=== PATIENT | female | born 1960 | race Caucasian/White ===

== ENCOUNTER 2016-12-02 09:47 | Day surgery (SDC) | payer OTHER ==
[~2016-12-02] VITALS: Ht 167.6 cm; Wt 67.5 kg
[~2016-12-02 09:47] MED LIST: ASPI81TA28 PO; TOPI50TA16 PO; ZOLP10TA PO; [UNRECOGNIZED DRUG - OTHER] PO
[2016-12-02 09:54] VITALS: BP 101/72; PULSE 80; TEMP 36.6; O2SAT 98; Ht 167.6 cm; Wt 67.5 kg
[2016-12-02 12:10] LABS: BUN/CREATININE RATIO 23.9 (10-20); CALCIUM 8.2 mg/dl (8.5-10.1); CREATININE 0.83 mg/dl (0.60-1.20); POTASSIUM 3.8 mmol/L (3.5-5.1)
[2017-03-18] MEDS ORDERED: POTA20TA16 PO (13:17)
[2017-04-06] MEDS ORDERED: ASPI-390 PO (14:38)
== END 2016-12-21 13:11 | disposition home or self-care (01) ==
LOC: C.MTU 09:47
PROVIDERS: ATTEND Internal Medicine Gastroenterology
DX: R19.7 Diarrhea, unspecified (principal)

== ENCOUNTER → 2016-12-09 | Outpatient (CLI) | payer OTHER ==
[~2016-12-09] MED LIST changes: +ASPI-390 PO; +POTA20TA16 PO; -[UNRECOGNIZED DRUG - OTHER] PO
[2016-12-12 16:30] LABS: IGA SERUM 169 mg/dL (81-463); TIS TRANS IGA 1 U/mL (<4)
== END | disposition home or self-care (01) ==
LOC: C.LAB 04:47
PROVIDERS: ATTEND Internal Medicine Gastroenterology
DX: R19.7 Diarrhea, unspecified (principal)

== ENCOUNTER → 2017-03-10 | Outpatient (CLI) | payer OTHER ==
[2017-03-10 05:26] LABS: BASO % 0.2 %; BASO ABS # 0.02 K/uL (0-0.2); COMPLETE YES; EOS % 0.5 %; HEMATOCRIT 45.7 % (37-47); IG% 0.2 %; LYMPH % 16.5 %; LYMPH ABS # 1.39 K/uL (1.2-3.4); MEAN CELL VOLUME 92.5 fL (80-100); MEAN CORPUSCULAR HGB CONC 33.5 g/dl (32-36); MEAN PLATELET VOLUME 8.8 fL (7.4-10.4); MONO % 12.8 %; NEUT % 69.8 %; PLATELET COUNT 276 K/uL (130-400); RED BLOOD COUNT 4.94 M/uL (4.2-5.4); WHITE BLOOD COUNT 8.41 K/uL (4.8-10.8)
[2017-03-10 08:22] LABS: ALKALINE PHOSPHATASE 91 U/L (45-117); ALT/SGPT 38 U/L (12-78); AST/SGOT 26 U/L (15-37); BLOOD UREA NITROGEN 20 mg/dl (7-18); BUN/CREATININE RATIO 17.9 (10-20); CALCIUM 8.9 mg/dl (8.5-10.1); CARBON DIOXIDE 30 mmol/L (21-32); CHLORIDE 104 mmol/L (98-107); GLUCOSE 81 mg/dl (70-99); POTASSIUM 2.5 mmol/L (3.5-5.1); SODIUM 141 mmol/L (136-145)
== END | disposition home or self-care (01) ==
LOC: C.LAB 04:59
PROVIDERS: ATTEND Family Medicine
DX: R19.7 Diarrhea, unspecified (principal); K52.839 Microscopic colitis, unspecified

== ENCOUNTER 2017-03-11 03:59 | Emergency (ER) | payer OTHER ==
[~2017-03-11] VITALS: Ht 170.2 cm; Wt 65.9 kg
[~2017-03-11 03:59] MED LIST changes: -ASPI-390 PO; -POTA20TA16 PO
[2017-03-11 04:03] VITALS: BP 109/58; TEMP 36.7; Ht 170.2 cm; Wt 65.9 kg
[2017-03-11] MEDS ORDERED: SODIUM CHLORIDE 0.9% 1000ML 1,000 ML IV STA (04:38)
[2017-03-11] MEDS ORDERED: POTASSIUM CHLORIDE 10 MEQ / 100ML WTR IV STA (04:38)
--- NOTE | 2017-03-11 04:43 | EMERGENCY ROOM VISIT NOTE ---
History Report prepared by Elvin: Olivier Flower Under the Supervision of: Dr. Brenda Muñiz D.O. First contact with patient: 04:09 Chief Complaint: DEHYDRATION Stated Complaint: DEHYDRATED Nursing Triage Summary: Patient reports diarrhea for 8 months, notes nausea as well. Patient states that symptoms are getting worse and she feels that she is dehydrated. History of Present Illness The patient is a 56 year old female who presents to the Emergency Room with complaints of generalized weakness starting about 4 weeks ago and worsening over the past few days. She has been having continuous diarrhea for the past 9 months which has worsened over the past 4 weeks. 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 She had an upper and lower endoscopy which showed polyps but was otherwise negative. She reports feeling dehydrated and fatigued. The patient had blood work done yesterday which showed a low potassium. She denies any history of low potassium. She has lost about 10 pounds in less than a month. She denies fevers, chills, nausea, vomiting, or any other complaints. She has a history of cholecystectomy occurring about 3 years ago. Source of History: patient Onset: about 4 weeks ago Position: other (global) Quality: other (generalized weakness) Timing: worsening Associated Symptoms: + diarrhea, + fatigue, No fevers, No chills, No nausea , No vomiting Review of Systems See HPI for pertinent positives & negatives. A total of 10 systems reviewed and were otherwise negative. Past Medical & Surgical Medical Problems: (1) Bulging cervical disc (2) Migraine Family History FH: myocardial infarction Social History Smoking Status: Current Every Day Smoker Alcohol Use: none Marital Status: single Occupation Status: employed Current/Historical Medications Scheduled Aspirin (Aspirin Ec), 81 MG PO QAM Topiramate (Topamax), 50 MG PO BID Zolpidem Tartrate (Ambien), 10 MG PO HS Allergies Coded Allergies: Iodinated Contrast Media (Verified Allergy, Intermediate, CONTRAST MEDIA- HIVES, 03/11/17) Physical Exam Vital Signs Date Time Temp Pulse Resp B/P (MAP) Pulse Ox O2 Delivery O2 Flow Rate FiO2 03/11/17 06:01 77 18 97 Room Air 03/11/17 04:55 83 03/11/17 04:03 36.7 102 20 109/58 96 Room Air Physical Exam HEENT: Head - normocephalic and atraumatic Pupils are equal, round, and reactive to light. Extraocular eye muscles are intact, and sclera are anicteric. Nose - moist nasal mucosa without discharge. Mouth - dry buccal mucosa. Oropharynx is nonerythematous and there is no tonsillar exudate or edema noted. Neck: Supple; no JVD, nuchal rigidity, cervical lymphadenopathy. Heart: Regular rate and rhythm. There is a normal S1 and S2 with no murmurs, clicks, or gallops appreciated. Lungs: Clear to auscultation bilaterally with no wheezes, rales, or rhonchi. Abdomen: Soft, completely nontender, nondistended, with good bowel sounds. There are no palpable pulsatile masses or hepatosplenomegaly. There is no guarding, rigidity, or rebound noted. Extremities: No evidence of cyanosis, clubbing, or edema. There are easily palpable peripheral pulses. Skin: warm and dry with poor turgor and no rashes. Medical Decision & Procedures Laboratory Results 03/11/17 04:45 03/11/17 05:47 Test 03/11/17 04:45 Anion Gap 7.0 mmol/L (3-11) Est Creatinine Clear Calc Drug Dose 51.5 ml/min Estimated GFR () 58.9 Estimated GFR (Non- 50.8 BUN/Creatinine Ratio 14.7 (10-20) Calcium Level 9.0 mg/dl (8.5-10.1) Laboratory results per my review. Medications Administered Medications (Trade) Dose Ordered Sig/Rosalinda Route Start Time Stop Time Status Last Admin Dose Admin Sodium Chloride 1,000 ml @ 999 mls/hr Q1H1M STAT IV 03/11/17 04:38 03/11/17 05:38 DC 03/11/17 04:50 999 MLS/HR Potassium Chloride (Kcl 10 Meq / Wtr) 10 meq NOW STAT IV 03/11/17 04:38 03/11/17 04:39 DC 03/11/17 04:50 10 MEQ Procedure Potassium Chloride 10 meq IV, Sodium Chloride 1000 ml @ 999 mls/hr IV ED Course 0409: Past medical records reviewed. The patient was evaluated in room A04B. A complete history and physical exam was performed. 0438: Potassium Chloride 10 meq IV, Sodium Chloride 1000 ml @ 999 mls/hr IV 0619: Upon reevaluation, the patient is resting comfortably. I discussed findings and results with her. She verbalized agreement of the treatment plan. She was discharged home. Medical Decision The patient presents to the Emergency Room with complaints of generalized weakness. Differential diagnosis includes but is not limited to dehydration, hypokalemia, profuse diarrhea, generalized weakness. Her labs showed potassium 2.8, BUN 18, creatinine 1.2, glucose 121. Stool specimen was collected but her PCP will follow up for results. I attest that I have personally reviewed the patient's current medication list. Patient was found to have normal blood pressure on screening and does not require follow-up. The patient had blood work drawn yesterday which revealed a potassium of 2.5. She continues to have profuse diarrhea. A stool specimen was obtained and was sent for Gram stain, culture and C. difficile. On repeat laboratory studies today, her potassium was 2.8. She was given 10 mEq of IV potassium. She'll be discharged to take foods high in potassium and have the potassium level rechecked in 5 days. Impression Primary Impression: Hypokalemia Scribe Attestation The scribe's documentation has been prepared under my direction and personally reviewed by me in its entirety. I confirm that the note above accurately reflects all work, treatment, procedures, and medical decision making performed by me. Departure Information Dispostion Home / Self-Care Referrals Lucinda Hoffmann D.O. (PCP) Forms HOME CARE DOCUMENTATION FORM, IMPORTANT VISIT INFORMATION, WORK / SCHOOL INSTRUCTIONS Patient Instructions Hypokalemia Florentin, My [facility] Additional Instructions Rest. Take plenty of clear liquids Take foods high in potassium. Have your potassium level checked in 5 days Follow up with PCP for results of stool samples
[2017-03-11 05:31] LABS: BLOOD UREA NITROGEN 18 mg/dl (7-18); BUN/CREATININE RATIO 14.7 (10-20); CARBON DIOXIDE 27 mmol/L (21-32); CHLORIDE 106 mmol/L (98-107); GLUCOSE 121 mg/dl (70-99); SODIUM 140 mmol/L (136-145)
[2017-03-11 06:01] VITALS: PULSE 77; O2SAT 97
[2017-03-18] MEDS ORDERED: POTA20TA16 PO (13:17)
[2017-04-06] MEDS ORDERED: ASPI-390 PO (14:38)
== END 2017-03-11 06:35 | disposition home or self-care (01) ==
LOC: C.EDB 03:59 → C.EDA 06:35
DX: E87.6 Hypokalemia (principal); R19.7 Diarrhea, unspecified; Z90.49 Acquired absence of other specified parts of digestive tract; Z82.49 Family history of ischemic heart disease and other diseases of the circulatory system; F17.210 Nicotine dependence, cigarettes, uncomplicated; Z79.899 Other long term (current) drug therapy; Z79.82 Long term (current) use of aspirin

== ENCOUNTER → 2017-03-16 | Outpatient (CLI) | payer OTHER ==
[~2017-03-16] MED LIST changes: +ASPI-390 PO; +POTA20TA16 PO
[2017-03-16 06:26] LABS: BASO % 0.4 %; BASO ABS # 0.04 K/uL (0-0.2); COMPLETE YES; EOS % 0.3 %; HEMATOCRIT 45.3 % (37-47); IG% 0.3 %; LYMPH % 16.1 %; LYMPH ABS # 1.46 K/uL (1.2-3.4); MEAN CELL VOLUME 91.9 fL (80-100); MEAN CORPUSCULAR HEMOGLOBIN 31.8 pg (25-34); MEAN CORPUSCULAR HGB CONC 34.7 g/dl (32-36); MEAN PLATELET VOLUME 9.2 fL (7.4-10.4); MONO % 7.7 %; NEUT % 75.2 %; PLATELET COUNT 301 K/uL (130-400); RED BLOOD COUNT 4.93 M/uL (4.2-5.4); WHITE BLOOD COUNT 9.09 K/uL (4.8-10.8)
[2017-03-16 07:02] LABS: ALT/SGPT 52 U/L (12-78); AST/SGOT 37 U/L (15-37); BLOOD UREA NITROGEN 23 mg/dl (7-18); BUN/CREATININE RATIO 19.4 (10-20); CARBON DIOXIDE 27 mmol/L (21-32); CHLORIDE 104 mmol/L (98-107); GLUCOSE 80 mg/dl (70-99); POTASSIUM 3.1 mmol/L (3.5-5.1); SODIUM 140 mmol/L (136-145)
[2017-03-16 07:04] LABS: ALB/GLOB RATIO 1.1 (0.9-2); ALKALINE PHOSPHATASE 88 U/L (45-117); C-REACTIVE PROTEIN 0.56 mg/dl (0-0.29)
[2017-03-16 13:26] LABS: CALCIUM 9.5 mg/dl (8.5-10.1)
== END | disposition home or self-care (01) ==
LOC: C.LAB 05:02
PROVIDERS: ATTEND Family Medicine
DX: R19.7 Diarrhea, unspecified (principal); K52.839 Microscopic colitis, unspecified

== ENCOUNTER → 2017-03-26 | Outpatient (CLI) | payer OTHER ==
[2017-03-26 09:19] LABS: BLOOD UREA NITROGEN 22 mg/dl (7-18); BUN/CREATININE RATIO 20.4 (10-20); CALCIUM 9.8 mg/dl (8.5-10.1); CARBON DIOXIDE 22 mmol/L (21-32); CHLORIDE 111 mmol/L (98-107); GLUCOSE 76 mg/dl (70-99); POTASSIUM 4.2 mmol/L (3.5-5.1); SODIUM 140 mmol/L (136-145)
== END | disposition home or self-care (01) ==
LOC: C.LAB 09:01
PROVIDERS: ATTEND Family Medicine
DX: R19.7 Diarrhea, unspecified (principal)

== ENCOUNTER → 2017-04-12 | Day surgery (SDC) | payer OTHER ==
[2017-04-06 14:35] VITALS: Ht 172.7 cm; Wt 63.6 kg
[~2017-04-12] VITALS: Ht 172.7 cm; Wt 63.6 kg
[~2017-04-12] MED LIST changes: +ATROPINE SULFATE 0.1 MG/ML 5ML SYR IV PRN; +EpHEDrine SULFATE INJ 50 MG/ML AMP IV PRN; +LIDOCAINE HCL 2% 2 ML VIAL (20MG/ML) ONE; +MIDAZOLAM HCL 1 MG/ML 2ML VIAL ONE; +PROPOFOL IV EMULSION 10 MG/ML 20 ML VIAL IV ONE
--- NOTE | 2017-04-12 10:51 | Endo History and Physical ---
History & Physical Date of Service: Apr 12, 2017. Chief Complaint: Weight loss, Colitis Referring Physician: Shun History of Present Illness 56 yo CF who presents for colonoscopy secondary to weight loss and colitis. Past Medical History Other Past Surgical History Hx Cardiac Surgery: Yes (HEART CATH-NO STENTS) Hx Internal Defibrillator: No Hx Pacemaker: No Hx Abdominal Surgery: Yes (FLYNN BSO, LAP MARIA FERNANDA) Hx of Implantable Prosthesis: No Hx Post-Op Nausea and Vomiting: No Hx Cancer Surgery: No Hx Thoracic Surgery: No Hx Orthopedic: No Hx Urinary Tract Surgery: No Family History None Social History Smoking Status: Current Every Day Smoker Hx Substance Use: No Hx Alcohol Use: No Allergies Coded Allergies: Iodinated Contrast Media (Verified Allergy, Intermediate, CONTRAST MEDIA- HIVES, 04/12/17) Current Medications Reported Home Medications Medications Dose Route/Sig Max Daily Dose Days Date Category Excedrin Migraine (Tqxpfoj-Fcwvthzuwwjlc-Qvuujdve) 1 Tab Tab 1 Tab PO UD PRN 04/06/17 Reported Klor-Con (Potassium Chloride) 20 Meq Tabcr 20 Meq PO QID 03/18/17 Reported Topamax (Topiramate) 50 Mg Tab 50 Mg PO BID 06/25/16 Reported Aspirin Ec (Aspirin) 81 Mg Tab 81 Mg PO QAM 05/28/16 Reported Ambien (Zolpidem Tartrate) 10 Mg Tab 10 Mg PO HS 05/19/16 Reported Vital Signs Weight (Kilograms): 63.64 Height (Feet): 5 Height (Inches): 8 Date Time Temp Pulse Resp B/P (MAP) Pulse Ox O2 Delivery O2 Flow Rate FiO2 04/12/17 10:34 36.9 95 18 115/66 (82) 98 Room Air Physical Exam General Appearance: WD/WN, no apparent distress Respiratory/Chest: Auscultation: breath sounds normal Cardiovascular: Heart Auscultation: RRR Abdomen: Bowel Sounds: normal Inspection & Palpation: soft, non-distended, no tenderness, guarding & rebound Assessment and Plan Assessment: 56 yo CF who presents for colonoscopy secondary to weight loss and colitis. Plan: Proceed with colonoscopy.
--- NOTE | 2017-04-12 11:47 | Discharge Instructions ---
Endoscopy Patient Instructions Date / Procedure(s) Performed Apr 12, 2017. Colonoscopy Allergy Information Coded Allergies: Iodinated Contrast Media (Verified Allergy, Intermediate, CONTRAST MEDIA- HIVES, 04/12/17) Discharge Date / Findings Apr 12, 2017. Rectal polyps Random colon biopsies Internal hemorrhoids Medication Instructions OK to resume all medications today as prescribed Reported Home Medications Medications Dose Route/Sig Max Daily Dose Days Date Category Excedrin Migraine (Yijknnw-Vmgjbliowzeay-Gcpkisry) 1 Tab Tab 1 Tab PO UD PRN 04/06/17 Reported Klor-Con (Potassium Chloride) 20 Meq Tabcr 20 Meq PO QID 03/18/17 Reported Topamax (Topiramate) 50 Mg Tab 50 Mg PO BID 06/25/16 Reported Aspirin Ec (Aspirin) 81 Mg Tab 81 Mg PO QAM 05/28/16 Reported Ambien (Zolpidem Tartrate) 10 Mg Tab 10 Mg PO HS 05/19/16 Reported Provider Instructions Activity Restrictions - No exercising or heavy lifting for 24 hours. - Do not drink alcohol the day of the procedure. - Do not drive a car or operate machinery until the day after the procedure. - Do not make any important decisions or sign important papers in 24 hours after the procedure. Following Day: - Return to full activity which may include returning to work/school. Diet Start your diet with liquids and light foods (jello, soup, juice, toast). Then eat your usual diet if not nauseated. Treatment For Common After Affects For mild abdominal pain, bloating, or excessive gas: - Rest - Eat lightly - Lie on right side Follow-Up Information Follow-up with Shun as scheduled Anesthesia Information What You Should Know You have had a procedure that required some medicine to reduce anxiety and discomfort. This treatment is called moderate sedation. After receiving the treatment, you may be sleepy, but you will be able to breathe on your own. The effects of the treatment may last for several hours. Follow these instructions along with Activity/Diet recommendations noted above: * Do NOT do anything where dizziness or clumsiness would be dangerous. * Rest quietly at home today, then you can be up and about tomorrow. * Have a responsible person stay with you the rest of today. * You may have had an I.V. today. If so, you may take the dressing off later today. Recommendations Call your doctor if: * Trouble breathing * Continuous vomiting for more than 24 hours * Temperature above 101 degrees * Severe abdominal pain or bloating * Pain not relieved by pain medicine ordered * There is increased drainage or redness from any incision * A large amount of rectal bleeding greater than 2-3 tablespoons. (If you had a polyp/s removed or have hemorrhoids, a small amount of blood - from the rectum is to be expected.) * You have any unanswered questions or concerns. IN THE EVENT OF A SERIOUS EMERGENCY, GO TO THE NEAREST EMERGENCY ROOM Your discharge instructions were prepared by provider Alfonzo Warner. Patient Instructions Signature Page Ilana Beckford Patient (or Guardian) Signature/Date: I have read and understand the instructions given to me by my caregivers. Caregiver/RN/Doctor Signature/Date: The above-named patient and/or guardian has received patient instructions on this date. + Original Patient Signature Page (only) stays with chart. Please make copy for patient.
--- NOTE | 2017-04-12 11:56 | GI REPORT ---
Procedure Date: 04/12/2017 10:58 AM Procedure: Colonoscopy Indications: Chronic diarrhea, Weight loss Medicines: Monitored Anesthesia Care Complications: No immediate complications. Estimated Blood Loss: Estimated blood loss: none. Procedure: Pre-Anesthesia Assessment: - Prior to the procedure, a History and Physical was performed, and patient medications and allergies were reviewed. The patient's tolerance of previous anesthesia was also reviewed. The risks and benefits of the procedure and the sedation options and risks were discussed with the patient. All questions were answered, and informed consent was obtained. Prior Anticoagulants: The patient has taken aspirin, last dose was 1 day prior to procedure. ASA Grade Assessment: II - A patient with mild systemic disease. After reviewing the risks and benefits, the patient was deemed in satisfactory condition to undergo the procedure. After I obtained informed consent, the scope was passed under direct vision. Throughout the procedure, the patient's blood pressure, pulse, and oxygen saturations were monitored continuously. The Scope was introduced through the anus and advanced to the terminal ileum. The colonoscopy was performed without difficulty. The patient tolerated the procedure well. The quality of the bowel preparation was good. The terminal ileum, ileocecal valve, appendiceal orifice, and rectum were photographed. Findings: Segmental mild inflammation characterized by erythema and loss of vascularity was found in the rectum, in the sigmoid colon and in the descending colon. Biopsies were taken with a cold forceps for histology. Two sessile polyps were found in the rectum. The polyps were 3 to 4 mm in size. These polyps were removed with a cold snare. Resection and retrieval were complete. Non-bleeding internal hemorrhoids were found during retroflexion. The hemorrhoids were small. Biopsies were taken with a cold forceps in the transverse colon and in the ascending colon for histology. Fluid aspiration for cytology was performed in the entire colon. Impression: - Segmental mild inflammation was found in the rectum, in the sigmoid colon and in the descending colon secondary to colitis. Biopsied. - Two 3 to 4 mm polyps in the rectum, removed with a cold snare. Resected and retrieved. - Non-bleeding internal hemorrhoids. - Biopsies were taken with a cold forceps for histology in the transverse colon and in the ascending colon. - Fluid aspiration was performed. Recommendation: - Resume previous diet. - Continue present medications. - Repeat colonoscopy for surveillance based on pathology results. - Return to GI office at appointment to be scheduled. Alfonzo Warner DO 04/12/2017 11:55:39 AM This report has been signed electronically. Note Initiated On: 04/12/2017 10:58 AM I attest to the content of the Intraoperative Record and orders documented therein, exceptions below
--- NOTE | 2017-04-12 12:10 | Anesthesiology Progress Note ---
Anesthesia Post Op Note Date & Time Apr 12, 2017 at 12:10 Vital Signs Pain Intensity: 0 Vital Signs Past 12 Hours Date Time Temp Pulse Resp B/P (MAP) Pulse Ox O2 Delivery O2 Flow Rate FiO2 04/12/17 12:00 82 16 101/73 (82) 98 Room Air 04/12/17 11:45 84 16 100/65 (77) 98 Room Air 04/12/17 10:34 36.9 95 18 115/66 (82) 98 Room Air Notes Mental Status: alert / awake / arousable, participated in evaluation Pt Amnestic to Procedure: Yes Nausea / Vomiting: adequately controlled Pain: adequately controlled Airway Patency, RR, SpO2: stable & adequate BP & HR: stable & adequate Hydration State: stable & adequate Anesthetic Complications: no major complications apparent
[2017-04-12 12:18] VITALS: BP 101/67; PULSE 72; O2SAT 97
== END | disposition home or self-care (01) ==
LOC: C.GI 09:53
PROVIDERS: ATTEND Internal Medicine
DX: D12.8 Benign neoplasm of rectum (principal); K52.831 Collagenous colitis; K64.8 Other hemorrhoids; F17.210 Nicotine dependence, cigarettes, uncomplicated; Z79.899 Other long term (current) drug therapy; Z79.82 Long term (current) use of aspirin

== ENCOUNTER → 2017-04-27 | Outpatient (CLI) | payer OTHER ==
[~2017-04-27] MED LIST changes: -ATROPINE SULFATE 0.1 MG/ML 5ML SYR IV PRN; -EpHEDrine SULFATE INJ 50 MG/ML AMP IV PRN; -LIDOCAINE HCL 2% 2 ML VIAL (20MG/ML) ONE; -MIDAZOLAM HCL 1 MG/ML 2ML VIAL ONE; -PROPOFOL IV EMULSION 10 MG/ML 20 ML VIAL IV ONE
[2017-04-27 06:28] LABS: BASO % 0.5 %; BASO ABS # 0.04 K/uL (0-0.2); COMPLETE YES; EOS % 4.4 %; HEMATOCRIT 43.8 % (37-47); IG% 0.1 %; LYMPH % 14.2 %; LYMPH ABS # 1.06 K/uL (1.2-3.4); MEAN CELL VOLUME 94.2 fL (80-100); MEAN CORPUSCULAR HEMOGLOBIN 32.3 pg (25-34); MEAN CORPUSCULAR HGB CONC 34.2 g/dl (32-36); MEAN PLATELET VOLUME 9.5 fL (7.4-10.4); MONO % 7.5 %; NEUT % 73.3 %; PLATELET COUNT 266 K/uL (130-400); RED BLOOD COUNT 4.65 M/uL (4.2-5.4); WHITE BLOOD COUNT 7.46 K/uL (4.8-10.8)
[2017-04-27 07:01] LABS: ALT/SGPT 37 U/L (12-78); AST/SGOT 24 U/L (15-37); BLOOD UREA NITROGEN 14 mg/dl (7-18); BUN/CREATININE RATIO 13.8 (10-20); CARBON DIOXIDE 24 mmol/L (21-32); CHLORIDE 111 mmol/L (98-107); GLUCOSE 85 mg/dl (70-99); POTASSIUM 3.9 mmol/L (3.5-5.1); SODIUM 141 mmol/L (136-145)
[2017-04-27 07:03] LABS: ALB/GLOB RATIO 1.1 (0.9-2); ALKALINE PHOSPHATASE 80 U/L (45-117)
== END | disposition home or self-care (01) ==
LOC: C.LAB 05:05
PROVIDERS: ATTEND Registered Nurse
DX: K52.831 Collagenous colitis (principal)

== ENCOUNTER 2017-04-28 10:13 | Day surgery (SDC) | payer OTHER ==
[~2017-04-28] VITALS: Ht 170.2 cm; Wt 63.7 kg
[2017-04-28 09:51] VITALS: BP 104/67; PULSE 85; TEMP 36.8; O2SAT 96; Ht 170.2 cm; Wt 63.7 kg
== END 2017-11-11 14:15 | disposition home or self-care (01) ==
LOC: C.MTU 10:13
PROVIDERS: ATTEND Registered Nurse
DX: E86.0 Dehydration (principal)

== ENCOUNTER → 2017-08-26 | Outpatient (CLI) | payer OTHER ==
--- NOTE | 2017-08-27 13:36 | MAMMOGRAPHY REPORT ---
BILATERAL DIGITAL SCREENING MAMMOGRAM TOMOSYNTHESIS WITH CAD: 08/26/2017 CLINICAL HISTORY: Routine screening. Patient has no complaints. TECHNIQUE: Breast tomosynthesis in addition to standard 2D mammography was performed. Current study was also evaluated with a Computer Aided Detection (CAD) system. COMPARISON: Comparison is made to exams dated: 08/21/2013 mammogram, 08/15/2012 mammogram, 08/10/2011 mammogram, 08/07/2010 mammogram, 08/06/2009 mammogram, and 12/28/2005 mammogram - [facility]. BREAST COMPOSITION: There are scattered areas of fibroglandular density in both breasts. FINDINGS: No suspicious masses, calcifications, or areas of architectural distortion are noted in ei ther breast. There has been no significant interval change compared to prior exams. IMPRESSION: ACR BI-RADS CATEGORY 1: NEGATIVE There is no mammographic evidence of malignancy. A 1 year screening mammogram is recommended. The pa tient will receive written notification of the results. Approximately 10% of breast cancers are not detected with mammography. A negative mammographic report should not delay biopsy if a clinically suggestive mass is present. Jessica Ramey M.D. ah/:08/26/2017 16:16:14 Chaser Apprentice: Libby WRIGHT(Loida)(Kavitha), [facility] letter sent: Normal 1/2 BI-RADS Code: ACR BI-RADS Category 1: Negative
== END | disposition home or self-care (01) ==
LOC: C.MAMM 13:40
PROVIDERS: ATTEND Family Medicine
DX: Z12.31 Encounter for screening mammogram for malignant neoplasm of breast (principal)

== ENCOUNTER → 2018-01-27 | Outpatient (CLI) | payer OTHER ==
[~2018-01-27] MED LIST changes: -ASPI-390 PO; -POTA20TA16 PO
[2018-01-27 06:26] LABS: BASO % 0.4 %; BASO ABS # 0.04 K/uL (0-0.2); EOS % 0.5 %; EOS ABS # 0.05 K/uL (0-0.5); HEMATOCRIT 40.5 % (37-47); HEMOGLOBIN 14.3 g/dL (12.0-16.0); IG# 0.02 K/uL (0.00-0.02); LYMPH % 15.1 %; LYMPH ABS # 1.38 K/uL (1.2-3.4); MEAN CELL VOLUME 92.3 fL (80-100); MEAN CORPUSCULAR HEMOGLOBIN 32.6 pg (25-34); MEAN CORPUSCULAR HGB CONC 35.3 g/dl (32-36); MEAN PLATELET VOLUME 9.4 fL (7.4-10.4); MONO % 8.8 %; NEUT ABS # 6.83 K/uL (1.4-6.5); PLATELET COUNT 238 K/uL (130-400); RED CELL DISTRIBUTION WIDTH CV 13.3 % (11.5-14.5); RED CELL DISTRIBUTION WIDTH SD 45.1 fL (36.4-46.3); WHITE BLOOD COUNT 9.12 K/uL (4.8-10.8)
[2018-01-27 06:56] LABS: ALT/SGPT 21 U/L (12-78); AST/SGOT 16 U/L (15-37); BLOOD UREA NITROGEN 16 mg/dl (7-18); CALCIUM 9.5 mg/dl (8.5-10.1); CARBON DIOXIDE 23 mmol/L (21-32); CREATININE 0.91 mg/dl (0.60-1.20); GLUCOSE 81 mg/dl (70-99); POTASSIUM 3.6 mmol/L (3.5-5.1); SODIUM 143 mmol/L (136-145)
[2018-01-27 07:07] LABS: ALKALINE PHOSPHATASE 78 U/L (45-117); TOTAL PROTEIN 7.6 gm/dl (6.4-8.2)
--- NOTE | 2018-01-27 14:04 | DIAGNOSTIC IMAGING REPORT ---
THORACIC SPINE 3 VIEWS HISTORY: Right-sided back pain. Chest CTA 09/28/2014. COMPARISON: None. FINDINGS: There is no fracture. No subluxation. Mild disc space narrowing throughout the majority of the thoracic spine with small plate osteophytes. This is consistent with degenerative change. Paraspinal soft tissues are unremarkable. Prior cholecystectomy. IMPRESSION: No fracture or subluxation within the thoracic spine. Mild degenerative changes seen throughout the thoracic spine. Electronically signed by: Raymon Segura M.D. 01/27/2018 2:03 PM Dictated Date/Time: 01/27/2018 2:01 PM
--- NOTE | 2018-01-27 14:05 | DIAGNOSTIC IMAGING REPORT ---
R RIBS UNILATERAL WITH PA CHEST CLINICAL HISTORY: 57 years-old Female presenting with back pain, history of rib fracture. TECHNIQUE: Frontal and oblique views of the right ribs as well as PA view of the chest were obtained. COMPARISON: Chest x-ray from 07/20/2016. FINDINGS: Atherosclerosis of aortic arch. Chronic silhouette normal in size. No focal opacity. No large effusion or pneumothorax. Cholecystectomy clips. No displaced right rib fracture. IMPRESSION: 1. No acute cardiopulmonary disease. 2. No displaced right rib fracture. Electronically signed by: Kofi Hamilton M.D. 01/27/2018 2:03 PM Dictated Date/Time: 01/27/2018 2:01 PM
== END | disposition home or self-care (01) ==
LOC: C.LAB 04:56
PROVIDERS: ATTEND Nurse Practitioner
DX: M54.6 Pain in thoracic spine (principal); R07.81 Pleurodynia

== ENCOUNTER 2018-02-01 11:49 | Emergency (ER) | payer OTHER ==
[~2018-02-01] VITALS: Ht 167.6 cm; Wt 72.4 kg
[2018-02-01 11:50] VITALS: TEMP 36.7; Ht 167.6 cm; Wt 72.4 kg
[2018-02-01] MEDS ORDERED: LRS10 PO (12:02)
[2018-02-01 12:32] VITALS: O2SAT 97
--- NOTE | 2018-02-01 12:39 | DIAGNOSTIC IMAGING REPORT ---
R RIBS UNILATERAL WITH PA CHEST CLINICAL HISTORY: Right-sided rib pain. COMPARISON STUDY: 01/27/2018 FINDINGS: There is no pneumothorax. The heart is normal in size. There is no focal pulmonary consolidation. There is an equivocal nondisplaced fracture of the right sixth rib. IMPRESSION: Probable nondisplaced right sixth rib fracture. No evidence of pneumothorax. Electronically signed by: Pablo Hernandez M.D. 02/01/2018 12:37 PM Dictated Date/Time: 02/01/2018 12:35 PM
[2018-02-01] MEDS ORDERED: OXYC1TAB3 PO (12:59)
[2018-02-01 13:22] VITALS: BP 138/87; PULSE 80; O2SAT 98
--- NOTE | 2018-02-01 18:37 | EMERGENCY ROOM VISIT NOTE ---
History Report prepared by Elvin: Shane Pardo Under the Supervision of: Dr. Steven Reyes M.D. First contact with patient: 11:57 Chief Complaint: RIB PAIN Stated Complaint: RIB PAIN History of Present Illness The patient is a 57 year old female who presents to the Emergency Room with complaints of worsening right-sided rib pain that started a week and a half ago. She says that she was at her chiropractor getting her back and neck cracked , and when he pushed on her, she immediately started feeling right-sided rib pain. She adds that both she and the chiropractor heard a crack at the moment the pain started. She notes that she had no pain before going to the chiropractor that day. The patient says that she also had pain across her upper back, but the right-sided rib pain is what has worsened over the past week. The patient states that she had back x-rays done 5 days ago, but they were unremarkable. She did not have a rib x-ray. She says that the pain has worsened to the point that she is now having trouble lifting her right arm, and she is having pain with deep breathing. The patient adds that she has a "thick cough". She says that she has a migraine from the pain. She notes that there is no bruising around the site of her pain. The patient denies any fevers, vomiting , abdominal pain, leg swelling, or leg pain. Source of History: patient Onset: A week and a half ago Position: other (right ribs) Quality: other (pain) Timing: worsening Modifying Factors (Worsening): exertion, breathing (deep) Associated Symptoms: + cough, + back pain, No fevers, No vomiting, No abdominal pain Note: Associated symptoms: Denies leg swelling or leg pain. Review of Systems See HPI for pertinent positives & negatives. A total of 10 systems reviewed and were otherwise negative. Past Medical & Surgical Medical Problems: (1) Bulging cervical disc (2) Migraine Family History FH: myocardial infarction Social History Smoking Status: Current Every Day Smoker Alcohol Use: none Marital Status: single Occupation Status: employed Current/Historical Medications Scheduled Aspirin (Aspirin Ec), 81 MG PO QAM Baclofen (Baclofen), 10 MG PO DAILY Topiramate (Topamax), 50 MG PO BID Zolpidem Tartrate (Ambien), 10 MG PO HS Scheduled PRN Oxycodone Ir (Roxicodone Ir), 5 MG PO Q4H PRN for Pain Allergies Coded Allergies: Iodinated Contrast Media (Verified Allergy, Intermediate, CONTRAST MEDIA- HIVES, 02/01/18) Physical Exam Vital Signs Date Time Temp Pulse Resp B/P (MAP) Pulse Ox O2 Delivery O2 Flow Rate FiO2 02/01/18 13:22 80 16 138/87 98 02/01/18 12:32 97 Room Air 02/01/18 11:50 36.7 94 20 135/79 97 Room Air Physical Exam Constitutional: Vital signs reviewed. Eyes: Pupils are equal round reactive to light. Conjunctiva are noninjected. ENT: Pharynx is clear without erythema or exudate. Mucous membranes are moist. Neck supple without meningeal signs. Respiratory: Clear to auscultation bilaterally. Breath sounds are equal bilaterally. Cardiovascular: Regular rate and rhythm. No rubs or gallops. GI: Soft, nondistended and nontender. Bowel sounds are present. Musculoskeletal: Point tenderness to the right 6th and 5th ribs mid-axillary line. No flail segment or ecchymosis. No peripheral edema. No lower extremity tenderness. Integumentary: No cyanosis. Neurological: The patient is awake and alert. No focal deficits. Psychiatric: Normal affect. Medical Decision & Procedures ER Provider Diagnostic Interpretation: X-ray results as stated below per interpretation by me and the radiologist: R RIBS UNILATERAL WITH PA CHEST CLINICAL HISTORY: Right-sided rib pain. COMPARISON STUDY: 01/27/2018 FINDINGS: There is no pneumothorax. The heart is normal in size. There is no focal pulmonary consolidation. There is an equivocal nondisplaced fracture of the right sixth rib. IMPRESSION: Probable nondisplaced right sixth rib fracture. No evidence of pneumothorax. Electronically signed by: Pablo Hernandez M.D. 02/01/2018 12:37 PM Dictated Date/Time: 02/01/2018 12:35 PM ED Course 1201: The patient was evaluated in room C9. A complete history and physical exam was performed. 1254: Upon reevaluation, the patient was resting. I let her know the x-ray results and reviewed the pain medicines with her. I advised her to talk to her doctor about her frequent rib fractures. I discussed today's findings with her. She verbalized agreement of the treatment plan. She was discharged home. Medical Decision This is a 57-year-old female presents with right rib pain. Differential diagnosis includes fracture, contusion, strain, pneumothorax. I did perform a limited focused review of portions of the patient's old chart on the electronic medical record. The patient was seen in December by pain management for Botox injections for migraines and she had unremarkable blood work on the of this month. I did evaluate the patient as noted above. The patient is presenting with right rib pain after chiropractic manipulation. She has pain to palpation of her ribs on the right side. I did order and personally review the patient's rib and chest x-rays as described above. There is no evidence of pneumothorax. She does have a nondisplaced sixth rib fracture. I did discuss the test results with the patient. She was advised to follow-up with her doctor. She is given return instructions as outlined below. She is given a prescription for oxycodone and given precautions regarding this medication. [place] Drug Monitoring Program Search Results: patient reviewed within database, no issues identified Medication Reconcilliation Current Medication List: was personally reviewed by me Blood Pressure Screening Patient's blood pressure: Elevated blood pressure Blood pressure disposition: Referred to PCP Impression Primary Impression: Right rib fracture Scribe Attestation The scribe's documentation has been prepared under my direct and personally reviewed by me in its entirety. I confirm that the note above accurately reflects all work, treatment, procedures, and medical decision making performed by me. Departure Information Dispostion Home / Self-Care Prescriptions Oxycodone Ir (Roxicodone Ir) 5 Mg Tab 5 MG PO Q4H Y for Pain, #20 TAB Prov: Steven Reyes M.D. 02/01/18 Referrals Lucinda Hoffmann D.O. (PCP) Patient Instructions Fx Rib, My [facility] Additional Instructions You have been examined and treated today on an emergency basis only. This is not a substitute for, or an effort to provide, complete comprehensive medical care. It is impossible to recognize and treat all injuries or illnesses in a single emergency department visit. It is therefore important that you follow up closely with your physician. Call as soon as possible for an appointment. Discuss potential further workup for your frequent rib fractures. Return for worsening symptoms or if you develop fever, sudden difficulty breathing or any other concerning symptoms. Problem Qualifiers Primary Impression: Right rib fracture Encounter type: initial encounter Rib fracture type: single rib Fracture type: closed Qualified Codes: S22.31XA - Fracture of one rib, right side, initial encounter for closed fracture
== END 2018-02-01 13:24 | disposition home or self-care (01) ==
LOC: C.EDB 11:49 → C.EDC 13:24
DX: S22.31XA Fracture of one rib, right side, initial encounter for closed fracture (principal); W50.0XXA Accidental hit or strike by another person, initial encounter; Y92.531 Health care provider office as the place of occurrence of the external cause; Z82.49 Family history of ischemic heart disease and other diseases of the circulatory system; F17.210 Nicotine dependence, cigarettes, uncomplicated; Z79.82 Long term (current) use of aspirin; Z79.899 Other long term (current) drug therapy; Z91.041 Radiographic dye allergy status